=== PATIENT | female | born 1955 | race Caucasian/White ===

== ENCOUNTER 2017-08-10 09:49 | Emergency (ER) | payer BC, OTHER ==
[2017-08-10 09:54] VITALS: BP 143/76; PULSE 60; TEMP 99; BMI 23.4
[2017-08-10] MEDS ORDERED: IBUPROFEN 400 MG TABLET (FP) PO ONE ×2 (10:34→10:36)
--- NOTE | 2017-08-10 11:19 | PDOC ---
History of Present Illness - General Chief Complaint: Bone Injury Stated Complaint: FALL Time Seen by Provider: 08/10/17 10:15 History Source: Patient Exam Limitations: No Limitations - History of Present Illness Initial Comments: 08/10/17 11:12 61 yr female slipped on ice and fell injured her right wrist no head trauma no LOC pt is right hand dominant Occurred: reports: just prior to arrival Severity: reports: moderate, severe Upper Extremity Pain Location: right: hand, wrist Method of Injury: reports: fell Past History - Past Medical History Allergies/Adverse Reactions: Allergies Allergy/AdvReac Type Severity Reaction Status Date / Time Penicillins Allergy Verified 08/10/17 09:51 Home Medications: Ambulatory Orders No Home Medications 0 dose .ROUTE UTDICT 03/06/13 Acetaminophen W/ Codeine #3 [Tylenol # 3 -] 1 tab PO Q6H PRN #12 tablet MDD 4 tabs 08/10/17 COPD: No GI Disorders: Yes (IBS) - Suicide/Smoking/Psychosocial Hx Smoking Status: Yes Smoking History: Former smoker Have you smoked in the past 12 months: No Number of Cigarettes Smoked Daily: 0 Information on smoking cessation initiated: No Hx Alcohol Use: No Drug/Substance Use Hx: No Substance Use Type: None *Physical Exam - Vital Signs Last Vital Signs Temp Pulse Resp BP Pulse Ox 99 F 60 20 143/76 100 08/10/17 09:51 08/10/17 09:51 08/10/17 09:51 08/10/17 09:51 08/10/17 09:51 - Physical Exam General Appearance: Yes: Nourished, Appropriately Dressed HEENT: positive: EOMI, RONAK Neck: positive: Supple. negative: Tender Respiratory/Chest: positive: Lungs Clear, Normal Breath Sounds Cardiovascular: positive: Regular Rhythm, Regular Rate Gastrointestinal/Abdominal: positive: Normal Bowel Sounds, Soft Musculoskeletal: positive: Normal Inspection Extremity: positive: Normal Capillary Refill, Tender, Other (right wirst with deformity, swelling, nv intact strong radial pulse) Integumentary: positive: Normal Color, Dry, Warm Neurologic: positive: Fully Oriented, Alert, Normal Mood/Affect, Normal Response , Motor Strength 5/5 Procedures - Splinting Splint Location: Right: Wrist Hand-Made Type: orthoglass ED Treatment Course - RADIOLOGY Radiology Studies Ordered: Category Date Time Status WRIST W/HAND-RIGHT* [RAD] Stat Radiology 08/10/17 10:02 Completed - Medications Given in the ED: ED Medications Discontinued Medications Generic Name Dose Route Start Last Admin Trade Name Melinda PRN Reason Stop Dose Admin Ibuprofen 800 mg 08/10/17 10:36 08/10/17 10:38 Motrin - PO 08/10/17 10:37 800 mg ONCE ONE Administration - Consult/PCP Time Called: 11:00 Case discussed with consulting physician: Benjy Mccollum Progress Note - Progress Note Progress Note: discussed with who is in the hospital. he will see pt in the ER pt and her aware Medical Decision Making - Medical Decision Making 08/10/17 11:13 cc: 61 yr slip and fall on ice fell on out stretched right hand. pt has swelling to the right wrist. ibuprofen 800mg given (pt did not want any stronger medicine) xray done, ice pack and wrist splint applied. 08/10/17 11:19 pt asking for tylenol does not want narcotic will give tylenol 1000mg now 08/10/17 13:05 seen in ER fast track by *DC/Admit/Observation/Transfer Diagnosis at time of Disposition: Wrist fracture, closed Qualifiers: Encounter type: initial encounter Laterality: right Qualified Code(s): S62.101A - Fracture of unspecified carpal bone, right wrist, initial encounter for closed fracture - Discharge Dispostion Disposition: HOME Condition at time of disposition: Good - Prescriptions Prescriptions: Acetaminophen W/ Codeine #3 [Tylenol # 3 -] 1 tab PO Q6H PRN #12 tablet MDD 4 tabs PRN Reason: Severe Pain - Referrals Referrals: Cinthya Rivero MD [Primary Care Provider] - Benjy Mccollum MD [Staff Physician] - - Patient Instructions Additional Instructions: follow with as discussed elevate the arm as directed take tylenol #3 for severe pain take with food take tylenol 650mg every 4-6hrs for pain - Post Discharge Activity
[2017-08-10] MEDS ORDERED: ACETAMINOPHEN 500 MG TABLET (FP) PO ONE (11:29)
[2017-08-10] MEDS ORDERED: ACETAMINOPHEN 500 MG TABLET (FP) ONE (11:34)
[2017-08-10] MEDS ORDERED: LIDOCAINE HCL 2% (20ML MULTI-DOSE VIAL) NR ONE (12:41)
[2017-08-10] MEDS ORDERED: LIDOCAINE HCL 2% (50ML VIAL) SQ STA (12:48)
--- NOTE | 2017-08-10 13:41 | PN ---
Progress Note (short form) - Note Progress Note: Pt seen and examined in ER. She is a 61 year old right hand dom female pt s/p fall today. C/o severe pain in the right wrist. She has a h/o B/L UE numbness, possible CTS PE RUE is swollen at the wrist She is able to flex and extend the elbow, wrist, fingers, thumb. Forearm rotation intact. + "dinner fork" deformity at the distal wrist very tender to palpation over the distal radius Xrays She a comminuted, shortened, dorsally angulated distal radius fracture. + dorsal comminution Imp 61 yo R hand dom F with a displaced, comminuted distal radius fracture. Rec 10cc 2% lidocaine hematoma block done. Closed reduction done Splint applied Strict elevation, follow up in office in 2 days She understands she may need surgery.
== END 2017-08-10 13:37 | disposition home or self-care (01) ==
LOC: JERFT 09:49
PROC: 2W3CX1Z Immobilization of Right Lower Arm using Splint (ICD-10-PCS; principal; 2017-08-10)
DX: S52.501A Unspecified fracture of the lower end of right radius, initial encounter for closed fracture (principal); W00.0XXA Fall on same level due to ice and snow, initial encounter; Y93.9 Activity, unspecified; Y92.9 Unspecified place or not applicable
CPT/HCPCS: 73110-TC-RT-FY; 73130-TC-RT-FY; 99283-25

== ENCOUNTER 2019-02-22 10:52 | Emergency (ER) | payer BC, OTHER ==
[2019-02-22 10:59] VITALS: TEMP 97.8; BMI 21.9
[2019-02-22] MEDS ORDERED: methylPREDNISolone NA SUCC 125 MG/2 ML VIAL ONE (11:00)
[2019-02-22] MEDS ORDERED: FAMOTIDINE 20 MG/50 ML IVPB 20 MG/50 ML MG IVPB ONE ×2 (11:05→11:07)
[2019-02-22] MEDS ORDERED: methylPREDNISolone NA SUCC 125 MG/2 ML VIAL IVPUSH ONE (11:05)
--- NOTE | 2019-02-22 11:15 | PDOC ---
History of Present Illness - General Chief Complaint: Rash Stated Complaint: BITE/RASH Time Seen by Provider: 02/22/19 11:06 History Source: Patient Exam Limitations: No Limitations - History of Present Illness Initial Comments: HPI: 63 y/o female presenting to [facility] ER as a bump up from [facility] complaining of a diffuse rash after being stung by a bee or a wasp approx. 30 min prior to arrival. Pt reports she was stung on the right side of her neck while sitting on her porch. Pruritic, red rash with raised areas developed shortly afterwards. Denies shortness of breath, sensation of tongue swelling, change in voice, or difficulty tolerating secretions. Pt endorses a history of similar reactions to bee or wasp stings in the past. Last episode was in 1998. Was not diagnosed with anaphylaxis reaction. Has never been intubated or required epinephrine injection. Medical Hx: - Pt denies past medical history. Does not take any prescription medication. Review of Systems: In addition to that documented in the HPI above, the additional ROS was obtained : Constitutional: Denies fevers or chills Head: Denies vision changes ENMT: Denies sore throat CV: Denies chest pain Resp: Denies SOB GI: Denies vomiting or diarrhea : Denies painful urination MSK: Denies recent trauma Skin: Per HPI Neuro: Denies new numbness or tingling or weakness Endocrine: Denies polyuria Heme: Denies bleeding or bruising Physical Examination: Constitutional: Well-developed, well-nourished adult male in no acute distress but mild obvious discomfort. Found semi-fowlers on hospital bed. Alert and oriented x4. Answered all questions appropriately and completely. Speech was non -labored, non-pressured. Observed walking from fast track area unassisted without difficulty. Head: Normocephalic. No obvious external signs of trauma. Throat: Oral cavity and pharynx normal. No inflammation, swelling, exudate, or lesions. Teeth and gingiva in good general condition. Neck: Supple, trachea is midline. Cardiovascular / Chest: Regular rate and regular rhythm. No murmur, rubs, clicks , or gallops. Peripheral pulses: radial pulses full. Respiratory: Breathing unlabored. Speaking in multi-word responses without pausing for breath. Equal chest rise and fall. Clear to auscultation bilaterally. No stridor, no wheezing, no rhonchi. Neuro: Alert and oriented. Moving all four extremities spontaneously. Skin: Diffuse erythema with urticaria to trunk and all four extremities. Psych: Affect: concerned. Mood: normal. MDM: *Reviewed vital signs, nursing notes, and prior visit documentation (if available). 63 y/o female presenting with diffuse urticaria after being stung by an insect. H/o of similar in remote past. Low suspicion for airway involvement. Afebrile. Vitals unremarkable for hypotension or tachycardia. Normoxic on room air. Physical exam as described above. Low suspicion for anaphylaxis. Administered Benadryl, Decadron, and Pepcid for symptom relief. Pt reassessed after being observed for three hours. Reports symptoms have significantly improved. Cutaneous lesions have completely resolved. Breathing remains unlabored. Will prescribe a short course of Prednisone and EpiPen. Discussed physical exam findings with pt. Answered all questions. Provided return precautions. Pt expressed verbal understanding and agreement with plan to discharge home with outpatient follow up. Provided coaching for EpiPen usage and signs of anaphylaxis. Pavan Stewart M.D., PGY2 Emergency Medicine Resident Past History - Past Medical History Allergies/Adverse Reactions: Allergies Allergy/AdvReac Type Severity Reaction Status Date / Time bee venom protein (honey bee) Allergy Hives Verified 02/22/19 11:16 Penicillins Allergy Verified 08/10/17 09:51 Home Medications: Ambulatory Orders No Home Medications 0 dose .ROUTE UTDICT 03/06/13 Epinephrine [Epipen 2-Sumeet] 0.3 mg IJ ASDIR #1 kit 02/22/19 Prednisone [Deltasone] 40 mg PO AM 4 Days #8 tablet 02/22/19 COPD: No GI Disorders: Yes (IBS) - Immunization History Immunization Up to Date: Yes - Suicide/Smoking/Psychosocial Hx Smoking Status: Yes Smoking History: Never smoked Have you smoked in the past 12 months: No Number of Cigarettes Smoked Daily: 0 Information on smoking cessation initiated: No Hx Alcohol Use: No Drug/Substance Use Hx: No Substance Use Type: None *Physical Exam - Vital Signs Last Vital Signs Temp Pulse Resp BP Pulse Ox 97.8 F 86 18 119/64 99 02/22/19 10:56 02/22/19 10:56 02/22/19 10:56 02/22/19 10:56 08/22/19 10:56 Vital Signs - Vital Signs #1 Blood Pressure: 149/86 (@11:35) MAP: 107 BP Location: Right Arm Blood Pressure Position: Sitting Pulse Rate: 54 Respiratory Rate: 16 O2 Sat by Pulse Oximetry (%): 100 Oxygen Delivery Method: Room Air *DC/Admit/Observation/Transfer Diagnosis at time of Disposition: Allergic reaction to insect sting Qualifiers: Encounter type: initial encounter Injury intent: accidental or unintentional Qualified Code(s): T63.481A - Toxic effect of venom of other arthropod, accidental (unintentional), initial encounter - Prescriptions Prescriptions: Epinephrine [Epipen 2-Sumeet] 0.3 mg IJ ASDIR #1 kit Prednisone [Deltasone] 40 mg PO AM 4 Days #8 tablet - Referrals Referrals: Cinthya Rivero MD [Primary Care Provider] - - Patient Instructions Printed Discharge Instructions: DI for General Allergic Reactions Additional Instructions: You were seen today for a rash after being stung by a bee. Your symptoms were likely a widespread allergic reaction but not an anaphylaxis reaction. That being said, your symptoms could possibly be more severe if/when you are stung again. I have sent two prescriptions to your pharmacy. The first is for a steroid called Prednisone. The second is for an emergency EpiPen. Take as directed on the package inserts. Do not exceed the recommended dosages. You can take over the counter Tylenol or Advil as needed for pain. Take as directed on the package insert. Do not exceed the recommended dosage. Follow up with your primary care doctor within the next 3-4 days. You will need to call to make an appointment. The number is included in this packet. Go to the nearest emergency department if your condition worsens or you feel like you need additional emergency evaluation. Print Language: STATELESS - Post Discharge Activity
--- NOTE | 2019-02-22 11:38 | PDOC ---
Attending Attestation - Resident Resident Name: Pavan Stewart - ED Attending Attestation I have performed the following: I have examined & evaluated the patient, The case was reviewed & discussed with the resident, I agree w/resident's findings & plan, Exceptions are as noted - HPI HPI: 02/22/19 11:38 63 years old with past medical history significant use was stung by bee on the right side of her neck approximately 30 minutes prior to arrival began to develop wheals and urticarial reaction no difficulty breathing swallowing no tongue swelling change in voice tolerating secretions well Insert my ROS statement
[2019-02-22 16:21] VITALS: BP 149/86; PULSE 54
== END 2019-02-22 14:28 | disposition home or self-care (01) ==
LOC: JER 10:52 → SUPCPDRO 10:52 → JER 14:28
PROC: 3E0333Z Introduction of Anti-inflammatory into Peripheral Vein, Percutaneous Approach (ICD-10-PCS; principal; 2019-02-22)
PROC: 3E033GC Introduction of Other Therapeutic Substance into Peripheral Vein, Percutaneous Approach (ICD-10-PCS; 2019-02-22)
DX: T63.481A Toxic effect of venom of other arthropod, accidental (unintentional), initial encounter (principal); Y92.008 Other place in unspecified non-institutional (private) residence as the place of occurrence of the external cause; R21 Rash and other nonspecific skin eruption; L29.9 Pruritus, unspecified
CPT/HCPCS: 99284-25